=== PATIENT | male | born 1975 | race Caucasian/White ===

== ENCOUNTER 2016-12-10 12:46 | Day surgery (SDC) | payer OTHER ==
[~2016-12-10] VITALS: Ht 200.7 cm; Wt 90.7 kg
[~2016-12-10 12:46] MED LIST: AMITRIPTYLINE100 MG PO; AUGMENTIN875 MG PO; BENADRYL25 MG PO; CLINORIL200 MG PO; CYMBALTA30 MG PO; DURAGESIC25 MCG TD; ENDOCET 10-3251 EACH PO; FLEXERIL10 MG PO; FLONASE16 G1 BOTH NARES; HYDROCODON-ACE1 EAC7 PO; KEFLEX500 MG PO; LYRICA100 MG PO; LYRICA150 MG PO; MOTRIN800 MG PO; NAPROSYN500 MG PO; NORCO 5/3251 TABLET PO; OXYCODONE-APAP1 EAC6 PO; TESSALON PERLE100 MG PO; ULTRAM50 MG PO; XARTEMIS XR 7.1 EACH PO
== END 2016-12-10 14:45 | disposition home or self-care (01) ==
LOC: PAIN 12:46 → SDC 13:15 → PAIN 14:45
DX: M47.26 Other spondylosis with radiculopathy, lumbar region (principal); M51.16 Intervertebral disc disorders with radiculopathy, lumbar region; M47.812 Spondylosis without myelopathy or radiculopathy, cervical region; M79.1 Myalgia; M96.1 Postlaminectomy syndrome, not elsewhere classified; Z98.1 Arthrodesis status; F17.200 Nicotine dependence, unspecified, uncomplicated; Z79.891 Long term (current) use of opiate analgesic
CPT/HCPCS: J1030; J2250; J3010; S0020

== ENCOUNTER 2017-01-06 07:38 | Day surgery (SDC) | payer OTHER ==
[~2017-01-06] VITALS: Ht 200.7 cm; Wt 90.3 kg
== END 2017-01-06 09:35 | disposition home or self-care (01) ==
LOC: PAIN 07:38
DX: M47.26 Other spondylosis with radiculopathy, lumbar region (principal); M51.16 Intervertebral disc disorders with radiculopathy, lumbar region; M54.5 Low back pain; J44.9 Chronic obstructive pulmonary disease, unspecified; M96.1 Postlaminectomy syndrome, not elsewhere classified; M47.812 Spondylosis without myelopathy or radiculopathy, cervical region; F17.200 Nicotine dependence, unspecified, uncomplicated; Z79.891 Long term (current) use of opiate analgesic; Z98.1 Arthrodesis status
CPT/HCPCS: J1030; J2250; J3010; S0020